=== PATIENT | female | born 1955 | race Caucasian/White ===

== ENCOUNTER 2016-11-16 09:24 | Emergency (ER) | payer SELFPAY ==
[2016-11-16 09:34] VITALS: BP 113/60
--- NOTE | 2016-11-16 10:09 | RAD ---
INDICATION: Right hand injury. TECHNIQUE: 4 views of the right hand were obtained. FINDINGS: There is soft tissue swelling around the wrist and metacarpal bones. The bones appear osteopenic. There is a transverse slightly impacted fracture of the distal radial metaphysis with mild dorsal angulation of the distal fragment relative to the proximal fragment. There are old healed fractures of the fourth and fifth metacarpals. 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 IMPRESSION: 1. ACUTE TRANSVERSE SLIGHTLY IMPACTED MILDLY ANGULATED FRACTURE OF THE DISTAL RADIUS. 2. OLD HEALED FRACTURES OF THE FOURTH AND FIFTH METACARPALS.
--- NOTE | 2016-11-16 10:18 | UC ---
Fracisco Dickey Adam, scribed for Rafa Rodriguez MD on 11/16/16 at 0931 . Upper Extremity HPI - HPI Summary HPI Summary: Pt is a 61 year old female presenting with pain in her right hand. She states that she fell backwards and landed on her hand as she was trying to pull a tree branch off of her mailbox. Negative PMHx. Surgical Hx of appy. No tobacco/ alcohol. FMHx of osteoporosis. - History of Current Complaint Stated Complaint: RIGHT HAND INJURY Hx Obtained From: Patient Onset/Duration: Sudden Onset, Lasting Hours, Still Present Severity Initially: Moderate Severity Currently: Moderate Location Of Pain: Is Discrete @ - Right hand Aggravating Factor(s): Movement Alleviating Factor(s): Nothing - Allergies/Home Medications Allergies/Adverse Reactions: Allergies Allergy/AdvReac Type Severity Reaction Status Date / Time No Known Allergies Allergy Verified 07/21/13 12:47 PMH/Surg Hx/FS Hx/Imm Hx Endocrine History Of: Denies: Diabetes, Thyroid Disease Cardiovascular History Of: Denies: Cardiac Disorders, Hypertension Respiratory History Of: Denies: COPD, Asthma GI/ History Of: Denies: Ulcer - Surgical History Surgical History: Yes Surgery Procedure, Year, and Place: Appendectomy at age 11 - Family History Known Family History: Positive: Other - Osteoporosis - Social History Lives: With Family - Female friend Alcohol Use: None Substance Use Type: None Smoking Status (MU): Never Smoked Tobacco - Immunization History Most Recent Tetanus Shot: 10 years ago Review of Systems Constitutional: Negative Musculoskeletal: Myalgia - Right hand All Other Systems Reviewed And Are Negative: Yes Physical Exam Triage Information Reviewed: Yes Vital Signs: Initial Vital Signs Temp 98.8 F 11/16/16 09:29 Pulse 70 11/16/16 09:29 Resp 16 11/16/16 09:29 BP 113/60 11/16/16 09:29 Pulse Ox 99 11/16/16 09:29 - Additional Comments Vital signs: Reviewed Gen.: Patient is a well developed and nourished female in no acute distress. Patient is sitting comfortably on the stretcher. Head: Normacephalic and atraumatic Eyes: PERRLA, EOMI x2. Ears: Right ear canal and TM WNL and Left ear canal and TM WNL Nose and mouth: Nose with dry mucosa and clear discharge, Positive pharyngeal erythema with white exudate. Neck: Supple, Positive bilateral submandibular and anterior cervical lymphadenopathy. No JVD Lungs: CTA B/L CVS: S1 & S2 present. No murmurs appreciated. ABDOMEN: Soft NT w/ positive BS. EXT; Right hand with ecchymossis and swelling and tenderness in the dorsal proximal area of the right hand. Diagnostics - Radiology Hand X-ray Radiology Interpretation Completed By: ED Physician - Distal radial fracture Upper Extremity Course/Dx - Course Course Of Treatment: Pt is a 61 year old female presenting with pain in her right hand. She states that she fell backwards and landed on her hand as she was trying to pull a tree branch off of her mailbox. Negative PMHx. Surgical Hx of appy. No tobacco/alcohol. FMHx of osteoporosis. Right hand with positive ecchymosis, swelling and tenderness at palpation. Right hand X-ray impression: 1. ACUTE TRANSVERSE SLIGHTLY IMPACTED MILDLY ANGULATED FRACTURE OF THE DISTAL RADIUS. 2. OLD HEALED FRACTURES OF THE FOURTH AND FIFTH METACARPALS. She declined any pain medications. I placed a sugar tongue splint. No complications. She was also given a shoulder splint. After splint the right upper extremity neurovascular intact. She has good capillary refill. She will be discharged home with F/U with Dr. Butler and orthopedics. She was recommended to return to the or go to the ED if develops increase in pain or any other symptom. She is hemodynamically stable Alert and oriented. - Differential Dx/Diagnosis Provider Diagnoses: Distal radial fracture Discharge - Discharge Plan Condition: Stable Disposition: HOME Patient Education Materials: Arm Fracture in Adults (ED) Referrals: Garrick England MD [Medical Doctor] - Additional Instructions: Follow up with Dr. England (Orthopedist) in 3-4 days. The documentation as recorded by the Fracisco locke Adam accurately reflects the service I personally performed and the decisions made by , Rafa Rodriguez MD.
== END 2016-11-16 10:22 | disposition home or self-care (01) ==
LOC: UCEAST 09:24
DX: S52.501A Unspecified fracture of the lower end of right radius, initial encounter for closed fracture (principal); W01.0XXA Fall on same level from slipping, tripping and stumbling without subsequent striking against object, initial encounter; Y92.9 Unspecified place or not applicable
CPT/HCPCS: 99212; G0463